=== PATIENT | male | born 1985 | race Caucasian/White ===

== ENCOUNTER 2023-04-17 10:52 | Inpatient (IN) ==
[2023-04-17] MEDS ORDERED: SODIUM CHLORIDE 0.9% 1,000 ML IV ONE ×2 (11:30→13:57)
[2023-04-17] MEDS ORDERED: ONDANSETRON INJ 2 MG/ML 2 ML VIAL IV STA (11:30)
[2023-04-17] MEDS ORDERED: KETOROLAC TROMETHAMINE 15 MG/ML VIAL IV STA (11:30)
[2023-04-17 11:34] LABS: Basophils # (auto) 0.09 K/uL (0.00-0.20); Basophils % (auto) 0.5 %; Eosinophils # (auto) 0.19 K/uL (0.00-0.50); Eosinophils % (auto) 1.1 %; Hemoglobin 14.1 g/dl (14.0-18.0); Immature Granulocytes # (auto) 0.08 K/uL (0.01-0.20); Immature Granulocytes % (auto) 0.5 %; Lymphocytes # (auto) 1.51 K/uL (1.20-3.40); Lymphocytes % (auto) 8.7 %; Mean Corpuscular Hemoglobin 30.8 pg (25.0-34.0); Mean Corpuscular Hgb Conc 33.6 g/dL (32.0-36.0); Mean Corpuscular Volume 91.7 fL (80.0-100.0); Mean Platelet Volume 11.2 fL (9.4-12.4); Monocytes % (auto) 10.9 %; Neutrophils # (auto) 13.61 K/uL (1.40-6.50); Neutrophils % (auto) 78.3 %; Platelet Count 186 K/uL (130-400); RDW Coefficient of Variation 12.5 % (11.5-14.5); Red Blood Count 4.58 M/uL (4.70-6.10); White Blood Count 17.38 K/ul (4.8-10.8)
[2023-04-17 11:49] LABS: Appearance Urine Slightly Cloudy (Clear); Bilirubin Urine 1+ (Negative); Blood Urine 3+ (Negative); Color Urine Amber; Glucose Urine UA Negative (Negative); Ketones Urine Trace (Negative); Leukocyte Esterase Urine Negative (Negative); Nitrite Urine Negative (Negative); Protein Urine 3+ (Negative); Specific Gravity Urine 1.015 (1.000-1.030); Urobilinogen Urine Negative (Negative)
--- NOTE | 2023-04-17 11:50 | XRay Report ---
XR chest 1V portable HISTORY: 37 years-old Male cough acute cough COMPARISON: None TECHNIQUE: AP view of the chest FINDINGS: Cardiomediastinal and hilar silhouettes are within normal limits. No pneumothorax, pleural effusion o r airspace consolidation. Bones appear grossly intact. IMPRESSION: No acute process. ACT 112: Negative or not required by law. The above report was generated using voice recognition software. It may contain grammatical, syntax o r spelling errors. Electronically signed by: Philip Joseph M.D. 04/17/2023 11:49 AM
[2023-04-17 11:58] LABS: Albumin Globulin Ratio 1.3 (0.9-2); BUN Creatinine Ratio 10.4 (10-20); Bilirubin,Total 0.5 mg/dl (0.2-1.0); Calcium 9.3 mg/dl (8.6-10.3); Creatinine Clr Calc Pharmacy 55.4 ml/min; Est GFR (African American) 51.1 ml/min; Est GFR (Non-African American) 44.1 ml/min; Globulin 3.1 gm/dl (2.5-4.0); Magnesium 1.9 mg/dl (1.7-2.4); Potassium 3.8 mmol/L (3.5-5.1); Total Protein 7.1 gm/dl (6.0-8.3)
[2023-04-17 12:02] LABS: Partial Thromboplastin Ratio 1.1; Partial Thromboplastin Time 32 Seconds (21-31); Prothrombin Time 11.2 Seconds (9.0-12.0)
--- NOTE | 2023-04-17 12:04 | Emergency Department Note ---
History of Present Illness General Chief complaint: Urinary Symptoms Stated complaint: BLOOD IN URINE Time Seen by Provider: 04/17/23 11:14 History of Present Illness Provider complaint: Hematuria Onset (ago): day(s) 2 Maximum Pain Intensity: 1 Associated symptoms: + cough and + fever/chills; no headaches, no nausea/vomiting or no rash 37-year-old male presents emergency department for hematuria. Patient reports hematuria for the last 2 days. He reports no dysuria. Reports no abdominal pain. No flank pain. He does report fever, Tmax 104. Patient reports he has also had chills, cough, congestion and diarrhea. No melena or hematochezia. Patient reports that his and children have also been sick with fevers. No recent trauma. No statin usage or nutritional supplements. No high intensity workouts lately. Home Medications Medication Instructions Recorded Confirmed Type acetaminophen 500 mg tablet 500 mg PO Q6H PRN PAIN/FEVER 04/17/23 04/17/23 History Allergies Allergy/AdvReac Type Severity Reaction Status Date / Time No Known Allergies Allergy Unverified 04/17/23 13:25 Past Med/Surg History Medical History No pertinent past medical history No pertinent family history Surgical History No pertinent past surgical history Social History Smoking Status: Never smoker Feels Safe at Home: Yes Physical Exam Vital Signs Vital Signs - 24 hr 04/17/23 10:59 04/17/23 12:53 Temperature 36.7 C Temperature Source Skin Pulse Rate 88 Respiratory Rate 18 16 Respiratory Effort / Characteristics Non-Labored Spontaneous Respiratory Depth Normal Respiratory Pattern Regular Blood Pressure 116/73 Blood Pressure [Left Arm] 129/78 Blood Pressure Mean 87 Blood Pressure Mean [Left Arm] 95 Blood Pressure Position [Left Arm] Lying Pulse Oximetry 100 99 Oxygen Delivery Method Room Air Room Air Sepsis Recent Fever Within 48 Hours No Sepsis New/Unexplained Change in Mental Status No Sepsis Action Taken by Nursing No Action Required Physical Exam GENERAL: He is oriented to person, place, and time. He appears well-developed and well-nourished. He does not appear distressed. HENT: Exam performed. - Head: Normocephalic and atraumatic. - Right Ear: External ear normal. No mastoid erythema - Left Ear: External ear normal. No mastoid erythema - Mouth/Throat: The oropharynx is clear and moist. No trismus in the jaw. No dental abscesses or uvula swelling. No oropharyngeal exudate or tonsillar abscesses. EYES: Conjunctivae and EOM are normal. Pupils are equal, round, and reactive to light. Right eye exhibits no discharge. Left eye exhibits no discharge. No scleral icterus. NECK: Normal range of motion. Neck supple. No JVD present. No spinous process tenderness present. No rigidity. No tracheal deviation and normal range of motion present. No Brudzinski's sign and no Kernig's sign noted. CV: Normal rate, regular rhythm, normal heart sounds and intact distal pulses. There is no peripheral edema. Palpable radial pulses bue. PULM/CHEST: Effort normal and breath sounds normal. No respiratory distress. No stridor. He has no wheezes. He has no rales. - Chest Wall: He exhibits no tenderness. ABD: The abdomen is soft. Bowel sounds are normal. He has no distension. No mass is present. There is no tenderness. There is no rebound, no guarding, no Gallegos's sign and no tenderness at McBurney's point. Rovsig negative. No CVA tenderness. MUSC/SKEL: Normal range of motion. There is no peripheral edema, tenderness or deformity. LYMPH: No cervical adenopathy. NEURO: He is alert and oriented to person, place, and time. He has normal strength. No cranial nerve deficit or sensory deficit. Coordination and gait normal. GCS eye subscore is 4. GCS verbal subscore is 5. GCS motor subscore is 6. Cerebellar tests wnl. SKIN: Skin is warm and dry. He is not diaphoretic. PSYCH: He has a normal mood and affect. Behavior is normal. Judgment and thought content normal. Course Course 1114: The patient was evaluated in room A12B. A complete history and physical exam was performed Cardiac monitoring: An order was placed for continuous cardiac monitoring. The monitor shows a rate of 90 with sinus rhythm interpreted by me 1345: Vital signs stable. Labs show leukocytosis 17. Lactic acid within normal limits. Creatinine is elevated at 1.92. Procalcitonin elevated 0.53. Urinalysis appears infected. Patient is Enterra rhinovirus positive. Imaging shows left-sided nephrolithiasis with 1.5 cm calculus within the left renal pelvis causing mild hydronephrosis and mild left-sided urothelial thickening. Patient will be treated with Rocephin for the UTI/pyelonephritis. Discussed case with urology Nate KONG for Dr. Melvin and she states they will come down and evaluate the patient. Patient will be admitted by the [facility] team Dr. Nickerson's team notified. Administered Medications Discontinued Medications Diatrizoate Meglumine (Diatrizoate Meglumine 30% 100ml Vial) 10 ml INSTIL ONCE ONE Stop: 04/17/23 17:40 Last Admin: 04/17/23 17:15 Dose: 10 ml Documented By: [id number] Sodium Chloride (Nss) 1,000 mls @ 999 mls/hr IV .Q1H1M ONE Stop: 04/17/23 12:30 Last Infusion: 04/17/23 14:07 Dose: Infused Documented By: Admin: 04/17/23 13:29 Dose: 999 mls/hr Documented By: CPB Ceftriaxone Sodium (Rocephin) 2,000 mg in 50 mls @ 100 mls/hr IV NOW STA Stop: 04/17/23 13:34 Last Infusion: 04/17/23 14:06 Dose: Infused Documented By: Admin: 04/17/23 13:25 Dose: 100 mls/hr Documented By: CPB Sodium Chloride (Nss) 1,000 mls @ 999 mls/hr IV .Q1H1M ONE Stop: 04/17/23 14:57 Last Infusion: 04/17/23 15:13 Dose: Infused Documented By: Admin: 04/17/23 14:06 Dose: 999 mls/hr Documented By: CPB Ketorolac Tromethamine (Ketorolac Tromethamine 15 Mg/Ml Vial) 15 mg IV NOW STA Stop: 04/17/23 11:31 Last Admin: 04/17/23 11:44 Dose: 15 mg Documented By: CPB Ondansetron HCl (Ondansetron Inj 2 Mg/Ml 2 Ml Vial) 4 mg IV NOW STA Stop: 04/17/23 11:31 Last Admin: 04/17/23 11:43 Dose: 4 mg Documented By: CPB Medical Decision Making Laboratory Data Attestation: I reviewed the patient's lab results. 04/17/23 11:10 04/17/23 11:10 Lab Results 04/17/23 04/17/23 04/17/23 Range/Units 11:10 11:10 11:10 WBC 17.38 H (4.8-10.8) K/ul RBC 4.58 L (4.70-6.10) M/uL Hgb 14.1 (14.0-18.0) g/dl Hct 42.0 (42.0-52.0) % MCV 91.7 (80.0-100.0) fL MCH 30.8 (25.0-34.0) pg MCHC 33.6 (32.0-36.0) g/dL RDW Std Deviation 42.0 (36.4-46.3) fL RDW Coeff of Ada 12.5 (11.5-14.5) % Plt Count 186 (130-400) K/uL MPV 11.2 (9.4-12.4) fL Immature Gran % (Auto) 0.5 % Neut % (Auto) 78.3 % Lymph % (Auto) 8.7 % [place] % (Auto) 10.9 % Eos % (Auto) 1.1 % Baso % (Auto) 0.5 % Neut # (Auto) 13.61 H (1.40-6.50) K/uL Lymph # (Auto) 1.51 (1.20-3.40) K/uL [place] # (Auto) 1.90 H (0.11-0.59) K/uL Eos # (Auto) 0.19 (0.00-0.50) K/uL Baso # (Auto) 0.09 (0.00-0.20) K/uL Immature Gran # (Auto) 0.08 (0.01-0.20) K/uL PT 11.2 (9.0-12.0) Seconds INR 1.0 (0.9-1.1) APTT 32 H Cancelled (21-31) Seconds PTT Ratio 1.1 Cancelled Sodium 134 L (136-145) mmol/L Potassium 3.8 (3.5-5.1) mmol/L Chloride 100 (98-107) mmol/L Carbon Dioxide 26 (21-32) mmol/L Anion Gap 8 (3-11) BUN 20 (6-23) mg/dl Creatinine 1.92 H (0.6-1.4) mg/dl Est Cr Clr Drug Dosing 55.4 ml/min Est GFR ( Amer) 51.1 ml/min Est GFR (Non-Af Amer) 44.1 ml/min BUN/Creatinine Ratio 10.4 (10-20) Glucose 110 H (70-99(Fasting)) mg/dl Lactate (0.4-2.0) mmol/L Calcium 9.3 (8.6-10.3) mg/dl Magnesium 1.9 (1.7-2.4) mg/dl Total Bilirubin 0.5 (0.2-1.0) mg/dl AST 19 (13-39) U/L ALT 10 (7-52) U/L Alkaline Phosphatase 75 (34-104) U/L Total Creatine Kinase 63 (30-223) U/L Total Protein 7.1 (6.0-8.3) gm/dl Albumin 4.0 (3.4-5.0) gm/dl Globulin 3.1 (2.5-4.0) gm/dl Albumin/Globulin Ratio 1.3 (0.9-2) Lipase 17 (11-82) U/L Procalcitonin 0.53 H (0-0.5) ng/ml Urine Color Neha Urine Appearance Slightly Cloudy (Clear) Urine pH 6.0 (4.5-7.5) Ur Specific [place] 1.015 (1.000-1.030) Urine Protein 3+ H (Negative) Urine Glucose (UA) Negative (Negative) Urine Ketones Trace H (Negative) Urine Blood 3+ H (Negative) Urine Nitrite Negative (Negative) Urine Bilirubin 1+ H (Negative) Urine Urobilinogen Negative (Negative) Ur Leukocyte Esterase Negative (Negative) Urine RBC >30 H (0-4) /hpf Urine WBC 10-30 H (0-5) /hpf Ur Epithelial Cells 0-5 (0-5) /lpf Urine Bacteria 2+ H (Negative) Hyaline Casts 0-5 (0-5) /lpf Adenovirus (PCR) Not Detected (NotDetected) B. pertussis DNA (PCR) Not Detected (NotDetected) B.parapertussis DNA PCR Not Detected (NotDetected) C. pneumoniae DNA (PCR) Not Detected (NotDetected) Coronavirus OC43 (PCR) Not Detected (NotDetected) Coronavirus HKU1 (PCR) Not Detected (NotDetected) Coronavirus 229E (PCR) Not Detected (NotDetected) SARS-CoV-2 (PCR) Not Detected (NotDetected) Coronavirus NL63 (PCR) Not Detected (NotDetected) Human Metapneumovir PCR Not Detected (NotDetected) Influenza Type A (PCR) Not Detected (NotDetected) Influenza Type B (PCR) Not Detected (NotDetected) M. pneumoniae (PCR) Not Detected (NotDetected) Parainfluenza 1 (PCR) Not Detected (NotDetected) Parainfluenza 2 (PCR) Not Detected (NotDetected) Parainfluenza 3 (PCR) Not Detected (NotDetected) Parainfluenza 4 (PCR) Not Detected (NotDetected) RSV (PCR) Not Detected (NotDetected) Entero/Rhino (PCR) DETECTED A* (NotDetected) 04/17/23 Range/Units 12:38 WBC (4.8-10.8) K/ul RBC (4.70-6.10) M/uL Hgb (14.0-18.0) g/dl Hct (42.0-52.0) % MCV (80.0-100.0) fL MCH (25.0-34.0) pg MCHC (32.0-36.0) g/dL RDW Std Deviation (36.4-46.3) fL RDW Coeff of Ada (11.5-14.5) % Plt Count (130-400) K/uL MPV (9.4-12.4) fL Immature Gran % (Auto) % Neut % (Auto) % Lymph % (Auto) % [place] % (Auto) % Eos % (Auto) % Baso % (Auto) % Neut # (Auto) (1.40-6.50) K/uL Lymph # (Auto) (1.20-3.40) K/uL [place] # (Auto) (0.11-0.59) K/uL Eos # (Auto) (0.00-0.50) K/uL Baso # (Auto) (0.00-0.20) K/uL Immature Gran # (Auto) (0.01-0.20) K/uL PT (9.0-12.0) Seconds INR (0.9-1.1) APTT (21-31) Seconds PTT Ratio Sodium (136-145) mmol/L Potassium (3.5-5.1) mmol/L Chloride (98-107) mmol/L Carbon Dioxide (21-32) mmol/L Anion Gap (3-11) BUN (6-23) mg/dl Creatinine (0.6-1.4) mg/dl Est Cr Clr Drug Dosing ml/min Est GFR ( Amer) ml/min Est GFR (Non-Af Amer) ml/min BUN/Creatinine Ratio (10-20) Glucose (70-99(Fasting)) mg/dl Lactate 0.9 (0.4-2.0) mmol/L Calcium (8.6-10.3) mg/dl Magnesium (1.7-2.4) mg/dl Total Bilirubin (0.2-1.0) mg/dl AST (13-39) U/L ALT (7-52) U/L Alkaline Phosphatase (34-104) U/L Total Creatine Kinase (30-223) U/L Total Protein (6.0-8.3) gm/dl Albumin (3.4-5.0) gm/dl Globulin (2.5-4.0) gm/dl Albumin/Globulin Ratio (0.9-2) Lipase (11-82) U/L Procalcitonin (0-0.5) ng/ml Urine Color Urine Appearance (Clear) Urine pH (4.5-7.5) Ur Specific [place] (1.000-1.030) Urine Protein (Negative) Urine Glucose (UA) (Negative) Urine Ketones (Negative) Urine Blood (Negative) Urine Nitrite (Negative) Urine Bilirubin (Negative) Urine Urobilinogen (Negative) Ur Leukocyte Esterase (Negative) Urine RBC (0-4) /hpf Urine WBC (0-5) /hpf Ur Epithelial Cells (0-5) /lpf Urine Bacteria (Negative) Hyaline Casts (0-5) /lpf Adenovirus (PCR) (NotDetected) B. pertussis DNA (PCR) (NotDetected) B.parapertussis DNA PCR (NotDetected) C. pneumoniae DNA (PCR) (NotDetected) Coronavirus OC43 (PCR) (NotDetected) Coronavirus HKU1 (PCR) (NotDetected) Coronavirus 229E (PCR) (NotDetected) SARS-CoV-2 (PCR) (NotDetected) Coronavirus NL63 (PCR) (NotDetected) Human Metapneumovir PCR (NotDetected) Influenza Type A (PCR) (NotDetected) Influenza Type B (PCR) (NotDetected) M. pneumoniae (PCR) (NotDetected) Parainfluenza 1 (PCR) (NotDetected) Parainfluenza 2 (PCR) (NotDetected) Parainfluenza 3 (PCR) (NotDetected) Parainfluenza 4 (PCR) (NotDetected) RSV (PCR) (NotDetected) Entero/Rhino (PCR) (NotDetected) Imaging Data Attestation: I personally reviewed and interpreted this imaging study as follows: My Impression: Chest x-ray negative. Airway clear. No pneumothorax. No consolidation. No cardiomegaly or cephalization.. No free air under the diaphragm. No fractures of the skeletal structures. Radiologist's Impression: Abdomen Fluoroscopy 04/17/23 00:00 FL KUB CLINICAL HISTORY: CYSTO, STENTleft-sided cystourethrogram COMPARISON STUDY: CT 04/17/2023 FLUOROSCOPY TIME: 5.4 seconds FLUOROSCOPY IMAGES: 3 EXPOSURE DOSE: Not reported mGy FINDINGS: Minimal left-sided hydronephrosis. Subsequent images demonstrate placement of a left ureteral stent which appears to be in satisfactory positioning proximally. The distal portion of the stent was not imaged. IMPRESSION: Fluoroscopic assistance as above. ACT 112: Negative or not required by law. Electronically signed by: Philip Joseph M.D. 04/17/2023 5:39 PM Abdomen/Pelvis CT 04/17/23 11:[address] WITHOUT CONTRAST CT DOSE: 920.38 mGy.cm HISTORY: Acute hematuria hematuria TECHNIQUE: Multiaxial CT images of the abdomen and pelvis were performed without contrast. A dose lowering technique was utilized adhering to the principles of ALARA. COMPARISON STUDY: None. FINDINGS: The lung bases are clear. Pectus excavatum. Trace pleural effusions. The unenhanced liver, spleen, gallbladder, pancreas, and adrenal glands are within normal limits. Unremarkable right kidney. Numerous left-sided renal calculi within the mid and inferior poles include a 9 mm calculus of the inferior pole 1.5 cm calculus in the renal pelvis. Mild left-sided hydronephrosis with urothelial thickening. No ureteral calculi identified. Urinary bladder wall thickening with partial distention. No abdominal aortic aneurysm or lymphadenopathy. No bowel wall thickening or obstruction. Normal appendix. No acute fracture. IMPRESSION: 1. Left nephrolithiasis with a 1.5 cm calculus within the left renal pelvis resulting in mild hydronephrosis. 2. Mild left-sided urothelial thickening may be reactive or represent an associated infectious etiology. Correlate with urinalysis. 3. Normal appendix. ACT 112: Negative or not required by law. The above report was generated using voice recognition software. It may contain grammatical, syntax or spelling errors. Electronically signed by: Philip Joseph M.D. 04/17/2023 12:27 PM Chest X-Ray 04/17/23 11:20 XR chest 1V portable HISTORY: 37 years-old Male cough acute cough COMPARISON: None TECHNIQUE: AP view of the chest FINDINGS: Cardiomediastinal and hilar silhouettes are within normal limits. No pneumothorax, pleural effusion or airspace consolidation. Bones appear grossly intact. IMPRESSION: No acute process. ACT 112: Negative or not required by law. The above report was generated using voice recognition software. It may contain grammatical, syntax or spelling errors. Electronically signed by: Philip Joseph M.D. 04/17/2023 11:49 AM [facility] Narrative 1114: The patient was evaluated in room A12B. A complete history and physical exam was performed Cardiac monitoring: An order was placed for continuous cardiac monitoring. The monitor shows a rate of 90 with sinus rhythm interpreted by nd 1345: Vital signs stable. Labs show leukocytosis 17. Lactic acid within normal limits. Creatinine is elevated at 1.92. Procalcitonin elevated 0.53. Urinalysis appears infected. Patient is Enterra rhinovirus positive. Imaging shows left-sided nephrolithiasis with 1.5 cm calculus within the left renal pelvis causing mild hydronephrosis and mild left-sided urothelial thickening. Patient will be treated with Rocephin for the UTI/pyelonephritis. Discussed case with urology Nate KONG for Dr. Melvin and she states they will come down and evaluate the patient. Patient will be admitted by the [facility] team Dr. Nickerson's team notified. Impression & Plan Acute pyelonephritis, Rhinovirus infection, MARYCARMEN (acute kidney injury), Enterovirus infection Discharge Plan Visit Data Chief Complaint: Urinary Symptoms Stated Complaint: BLOOD IN URINE ED Provider: Alexis Blas Discharge Problem: Acute pyelonephritis, Rhinovirus infection, MARYCARMEN (acute kidney injury), Enterovirus infection Patient Disposition: Admitted As Inpatient Discharge Instructions Interventions: ED Discharge Assessment Last Done: 04/17/23 16:00
[2023-04-17 12:10] LABS: Epithelial Cell Urine 0-5 /lpf (0-5); RBC Urine >30 /hpf (0-4)
[2023-04-17 12:17] LABS: Bacteria Urine 2+ (Negative)
[2023-04-17 12:18] LABS: Hyaline Casts Urine 0-5 /lpf (0-5)
[2023-04-17 12:20] LABS: Adenovirus PCR Not Detected (NotDetected); Bordetella parapertussis PCR Not Detected (NotDetected); Bordetella pertussis PCR Not Detected (NotDetected); Chlamydia pneumoniae PCR Not Detected (NotDetected); Coronavirus 229E PCR Not Detected (NotDetected); Coronavirus CoV-2 (COVID19)PCR Not Detected (NotDetected); Coronavirus HKU1 PCR Not Detected (NotDetected); Coronavirus NL63 PCR Not Detected (NotDetected); Coronavirus OC43PCR Not Detected (NotDetected); Human Metapneumovirus PCR Not Detected (NotDetected); Influenza A PCR Not Detected (NotDetected); Influenza B PCR Not Detected (NotDetected); Mycoplasma pneumoniae PCR Not Detected (NotDetected); Parainfluenza Virus 1 PCR Not Detected (NotDetected); Parainfluenza Virus 2 PCR Not Detected (NotDetected); Parainfluenza Virus 3 PCR Not Detected (NotDetected); Parainfluenza Virus 4 PCR Not Detected (NotDetected); Respiratory Syncytial VirusPCR Not Detected (NotDetected)
--- NOTE | 2023-04-17 12:28 | CT Scan Report ---
ABDOMEN AND PELVIS CT WITHOUT CONTRAST CT DOSE: 920.38 mGy.cm HISTORY: Acute hematuria hematuria TECHNIQUE: Multiaxial CT images of the abdomen and pelvis were performed without contrast. A dose lo wering technique was utilized adhering to the principles of ALARA. COMPARISON STUDY: None. FINDINGS: The lung bases are clear. Pectus excavatum. Trace pleural effusions. The unenhanced liver, spleen, gallbladder, pancreas, and adrenal glands are within normal limits. Unremarkable right kidney. Numerous left-sided renal calculi within the mid and inferior poles includ e a 9 mm calculus of the inferior pole 1.5 cm calculus in the renal pelvis. Mild left-sided hydroneph rosis with urothelial thickening. No ureteral calculi identified. Urinary bladder wall thickening wit h partial distention. No abdominal aortic aneurysm or lymphadenopathy. No bowel wall thickening or ob struction. Normal appendix. No acute fracture. IMPRESSION: 1. Left nephrolithiasis with a 1.5 cm calculus within the left renal pelvis resulting in mild hydrone phrosis. 2. Mild left-sided urothelial thickening may be reactive or represent an associated infectious etiolo gy. Correlate with urinalysis. 3. Normal appendix. ACT 112: Negative or not required by law. The above report was generated using voice recognition software. It may contain grammatical, syntax o r spelling errors. Electronically signed by: Philip Joseph M.D. 04/17/2023 12:27 PM
[2023-04-17] MEDS ORDERED: cefTRIAXone SODIUM 2,000 MG/50 ML BAG IV STA (13:05)
[2023-04-17 13:09] LABS: Rhinovirus/Enterovirus PCR DETECTED (NotDetected)
--- NOTE | 2023-04-17 13:28 | History & Physical Report ---
Date of Service April 17, 2023 Assessment & Plan (1) Ureterolithiasis: Plan: 1.5cm stone. Consult urology to consider stent placement - possibly later today given suspected MARYCARMEN and associated infection NPO, IV fluids (2) UTI (urinary tract infection): Plan: Ceftriaxone pending blood and urine cultures (3) Rhinovirus infection: Plan: Symptomatic treatment only with guaifenesin/dextromethorphan as needed Droplet isolation precautions Plan VTE prophylaxis - low risk Diet - NPO pending urological intervention Disposition - admit to med/surg Admission and Anticipated Discharge Date Admission Date: April 17, 2023 History of Present Illness Chief Complaint: Hematuria Primary Care Provider: NO PCP Romna Mujica is a 37-year-old male who presents to the emergency room on advice of urgent care with hematuria and fevers. Symptoms started on Saturday night (2 days ago) and have been persistent prompting his urgent care visit today. Associated cough with yellow/green phlegm and generalized myalgias. No sinus pain or postnasal drip. No specific urinary symptoms with no dysuria, change in color/smell, back or flank pain. He has no chronic medical conditions and takes no chronic medications. He has been taking acetaminophen for his fever with 1 dose of ibuprofen on Saturday. Allergies Allergy/AdvReac Type Severity Reaction Status Date / Time No Known Allergies Allergy Unverified 04/17/23 13:25 Home Medications Medication Instructions Recorded Confirmed Type acetaminophen 500 mg tablet 500 mg PO Q6H PRN PAIN/FEVER 04/17/23 04/17/23 History Past Med/Surg History Medical History No pertinent past medical history No pertinent family history Surgical History No pertinent past surgical history Social History Smoking Status: Never smoker Feels Safe at Home: Yes Review of Systems Review of Systems: All systems reviewed & are unremarkable except as noted in HPI & below Physical Exam Constitutional: WD/WN, vitals as above ENMT: Mouth: oral mucous membranes not dry Respiratory: normal respiratory effort, lungs clear to auscultation Cardiovascular: RRR, no murmur, no edema Gastrointestinal (Abdomen): normal bowel sounds, soft, nontender, no hepatosplenomegaly Musculoskeletal: no cyanosis or clubbing, extremities motor strength 5/5 Skin: no rashes, warm and dry Neurologic: moves all extremities and awake; not confused Psychiatric: A+Ox3, euthymic affect Results & Data Results & Data Vital Signs (Past 12 Hours) Vital Signs Temp Pulse Resp BP BP Pulse Ox O2 Del Method 04/17/23 12:53 16 129/78 99 Room Air 04/17/23 10:59 36.7 C 88 18 116/73 100 Room Air Laboratory Results Abnormal lab results 04/17/23 Range/Units 11:10 WBC 17.38 H (4.8-10.8) K/ul RBC 4.58 L (4.70-6.10) M/uL Neut # (Auto) 13.61 H (1.40-6.50) K/uL [place] # (Auto) 1.90 H (0.11-0.59) K/uL APTT 32 H (21-31) Seconds Sodium 134 L (136-145) mmol/L Creatinine 1.92 H (0.6-1.4) mg/dl Glucose 110 H (70-99(Fasting)) mg/dl Procalcitonin 0.53 H (0-0.5) ng/ml Urine Protein 3+ H (Negative) Urine Ketones Trace H (Negative) Urine Blood 3+ H (Negative) Urine Bilirubin 1+ H (Negative) Urine RBC >30 H (0-4) /hpf Urine WBC 10-30 H (0-5) /hpf Urine Bacteria 2+ H (Negative) Entero/Rhino (PCR) DETECTED A* (NotDetected) Diagnostic Findings XR chest 1V portable HISTORY: 37 years-old Male cough acute cough COMPARISON: None TECHNIQUE: AP view of the chest FINDINGS: Cardiomediastinal and hilar silhouettes are within normal limits. No pneumothorax, pleural effusion or airspace consolidation. Bones appear grossly intact. IMPRESSION: No acute process. ABDOMEN AND PELVIS CT WITHOUT CONTRAST CT DOSE: 920.38 mGy.cm HISTORY: Acute hematuria hematuria TECHNIQUE: Multiaxial CT images of the abdomen and pelvis were performed without contrast. A dose lowering technique was utilized adhering to the principles of ALARA. COMPARISON STUDY: None. FINDINGS: The lung bases are clear. Pectus excavatum. Trace pleural effusions. The unenhanced liver, spleen, gallbladder, pancreas, and adrenal glands are within normal limits. Unremarkable right kidney. Numerous left-sided renal calculi within the mid and inferior poles include a 9 mm calculus of the inferior pole 1.5 cm calculus in the renal pelvis. Mild left-sided hydronephrosis with urothelial thickening. No ureteral calculi identified. Urinary bladder wall thickening with partial distention. No abdominal aortic aneurysm or lymphadenopathy. No bowel wall thickening or obstruction. Normal appendix. No acute fracture. IMPRESSION: 1. Left nephrolithiasis with a 1.5 cm calculus within the left renal pelvis resulting in mild hydronephrosis. 2. Mild left-sided urothelial thickening may be reactive or represent an associated infectious etiology. Correlate with urinalysis. 3. Normal appendix. Medications Administered ER medications given: Ceftriaxone 2000 mg IV Sodium chloride 1000 mL bolus Toradol 15 mg IV Ondansetron 4 mg IV Code Status & VTE Plan Code Status Full VTE Prophylaxis Plan VTE Prophylaxis will be ordered: No PG Care Time/CCT Total # of Minutes Spent Total Time Spent with Patient: Total time spent is greater than 50% in coordination of care (as documented) at patient's floor/unit and/or counseling patient: Coding Level of Care Code 34205 INT INP/OBS CARE 2MIN Diagnoses Ureterolithiasis N20.1 UTI (urinary tract infection) N39.0 Rhinovirus infection B34.8
--- NOTE | 2023-04-17 14:32 | Urology Consultation ---
Date of Consultation April 17, 2023 Assessment & Plan (1) Ureterolithiasis: Plan 37-year-old male with fevers, hematuria and a large left renal pelvis stone with potentially a small amount of hydronephrosis. Discussed options and will plan for going to the OR for cystoscopy, left retrograde pyelogram left ureteral stent placement. Consent obtained after discussing risks and benefits. Patient already received antibiotics. Patient marked History of Present Illness History of Present Illness 37-year-old male present to the hospital with hematuria and fevers. Febrile with stable vitals upon arrival but reported a fever of 104 at home. Labs showed a leukocytosis of 17.3, creatinine of 1.92 with an unknown baseline, and a urinalysis that had greater than 30 RBCs, 10-[address] scan showed a large 1.5 cm left renal pelvis stone with potential mild hydronephrosis. Allergies Allergy/AdvReac Type Severity Reaction Status Date / Time No Known Allergies Allergy Unverified 04/17/23 13:25 Home Medications Medication Instructions Recorded Confirmed Type acetaminophen 500 mg tablet 500 mg PO Q6H PRN PAIN/FEVER 04/17/23 04/17/23 History Patient History Medical History No pertinent past medical history No pertinent family history Surgical History No pertinent past surgical history Social History Smoking Status: Never smoker Feels Safe at Home: Yes Review of Systems Review of Systems: 14 point review of systems negative outs megan of what is listed above in HPI Physical Exam Physical Exam: General: Alert and oriented, no acute distress HEENT: Normocephalic, mucous membranes moist Pulmonary: Nonlabored respirations Abdomen: Nondistended Extremities: Moves all 4 spontaneously Neuro: No gross deficits Skin: Warm, dry, no rashes noted Results & Data Vital Signs (Past 12 Hours) Vital Signs Temp Pulse Pulse Resp BP BP Pulse Ox 04/17/23 14:00 36.9 C 76 18 124/82 98 04/17/23 12:53 16 129/78 99 04/17/23 10:59 36.7 C 88 18 116/73 100 O2 Del Method 04/17/23 14:00 Room Air 04/17/23 12:53 Room Air 04/17/23 10:59 Room Air PG Care Time/CCT Total # of Minutes Spent Total Time Spent with Patient: Total time spent is greater than 50% in coordination of care (as documented) at patient's floor/unit and/or counseling patient: Coding Level of Care Code 82475 IN/OBS CONSULT LVL 3,45M Diagnoses Ureterolithiasis N20.1
[2023-04-17] MEDS ORDERED: guaiFENesin/DEXTROM SYRUP 200MG/20MG 10ML UDC PO PRN (15:34)
[2023-04-17] MEDS ORDERED: ACETAMINOPHEN 1,000 MG/100 ML VIAL IV PRN (15:34)
[2023-04-17] MEDS ORDERED: PROPOFOL IV EMULSION 10 MG/ML 20 ML VIAL IV ONE ×2 (16:38→17:04)
[2023-04-17] MEDS ORDERED: LIDOCAINE 2% 2 ML VIAL/AMP(20MG/ML) INFIL ONE (16:38)
[2023-04-17] MEDS ORDERED: MIDAZOLAM HCL 1 MG/ML 2ML VIAL ONE ×2 (16:38→17:00)
[2023-04-17] MEDS ORDERED: fentaNYL citrate PF 100 MCG/2 ML VIAL ONE (16:39)
[2023-04-17] MEDS ORDERED: ATROPINE SULFATE 0.1 MG/ML 10ML SYR IV PRN (16:40)
[2023-04-17] MEDS ORDERED: ONDANSETRON INJ 2 MG/ML 2 ML VIAL IV PRN (16:40)
[2023-04-17] MEDS ORDERED: ePHEDrine sulfate 50 MG/ML AMP IV PRN (16:40)
[2023-04-17] MEDS ORDERED: fentaNYL citrate PF 100 MCG/2 ML VIAL IV PRN (16:40)
--- NOTE | 2023-04-17 16:40 | Anesthesiology Consultation ---
Date of Service April 17, 2023 Assessment & Plan ASA ASA1 Proposed Anesthesia Anesthesia Type: MAC Risk / Benefits Reviewed With: PT / POA / Parent / Guardian, Accepts Plan and Informed Consent Obtained History Surgery Operation Date: 04/17/23 13:10 Proposed Procedures p Cystoscopy, Left Retrograde Pyelogram, Left Ureteral Stent Placement(Left) - Desean Melvin MD Height/Weight Height: 5 ft 10 in Weight: 84.7 kg Allergies Allergy/AdvReac Type Severity Reaction Status Date / Time No Known Allergies Allergy Unverified 04/17/23 13:25 Medications Home Medications Medication Instructions Recorded Confirmed Last Taken acetaminophen 500 mg tablet 500 mg PO Q6H PRN PAIN/FEVER 04/17/23 04/17/23 04/17/23 NPO Date Last Intake of Fluids: 04/17/23 Time Last Intake of Fluids: 11:00 Date Last Intake of Solids: 04/17/23 Time Last Intake of Solids: 08:00 Past Medical History Medical History No pertinent past medical history No pertinent family history Exercise / Class Metabolic Activity II 4-5 Yardwork/Stairs/Walk up hill Past Surgical History Surgical History No pertinent past surgical history Past Anesthesia History No Hx of Anesthesia Complications and No Family Hx of Anesthesia Complications History of PONV No Hx of PONV and No Hx of Motion Sickness Social History Smoking Status: Never smoker Review of Systems denies fever/cough/ colds/ chest pain/ SOB/ JUSTINA denies JUSTINA Physical Exam Vital Signs Last Vital Signs Temp 36.9 C 04/17/23 16:17 Pulse 92 H 04/17/23 16:17 Resp 18 04/17/23 16:17 BP 121/81 04/17/23 16:17 Pulse Ox 100 04/17/23 16:17 O2 Del Method Room Air 04/17/23 16:17 ENMT Mouth: no TMJ abnormality and no dentition abnormality Thyromental Distance: > or= 3.5 Finger Breadths Mallampati Class: II Neck neck extension not limited Respiratory normal respiratory effort; no respiratory distress Auscultation: lungs clear to auscultation bilaterally Cardiovascular Rate/Rhythm: regular rate and regular rhythm Neurologic moves all extremities Psychiatric Orientation: alert and oriented x 3 Testing Laboratory Results 04/17/23 11:10 04/17/23 11:10 PT 11.2 Seconds (9.0-12.0) 04/17/23 11:10 INR 1.0 (0.9-1.1) 04/17/23 11:10 APTT 32 Seconds (21-31) H 04/17/23 11:10 APTT Cancelled 04/17/23 11:10 Urine Color Neha 04/17/23 11:10 Urine Appearance Slightly Cloudy (Clear) 04/17/23 11:10 Urine pH 6.0 (4.5-7.5) 04/17/23 11:10 Ur Specific [place] 1.015 (1.000-1.030) 04/17/23 11:10 Urine Protein 3+ (Negative) H 04/17/23 11:10 Urine Glucose (UA) Negative (Negative) 04/17/23 11:10 Urine Ketones Trace (Negative) H 04/17/23 11:10 Urine Nitrite Negative (Negative) 04/17/23 11:10 Ur Leukocyte Esterase Negative (Negative) 04/17/23 11:10 Urine RBC >30 /hpf (0-4) H 04/17/23 11:10 Urine WBC 10-30 /hpf (0-5) H 04/17/23 11:10 Ur Epithelial Cells 0-5 /lpf (0-5) 04/17/23 11:10
[2023-04-17] MEDS ORDERED: DIATRIZOATE MEGLUMINE 30% 100ML VIAL INSTIL ONE (17:39)
--- NOTE | 2023-04-17 17:41 | Fluoroscopy Report ---
FL KUB CLINICAL HISTORY: CYSTO, STENTleft-sided cystourethrogram COMPARISON STUDY: CT 04/17/2023 FLUOROSCOPY TIME: 5.4 seconds FLUOROSCOPY IMAGES: 3 EXPOSURE DOSE: Not reported mGy FINDINGS: Minimal left-sided hydronephrosis. Subsequent images demonstrate placement of a left ureter al stent which appears to be in satisfactory positioning proximally. The distal portion of the stent was not imaged. IMPRESSION: Fluoroscopic assistance as above. ACT 112: Negative or not required by law. Electronically signed by: Philip Joseph M.D. 04/17/2023 5:39 PM
--- NOTE | 2023-04-17 18:08 | Operative Report ---
PG Post Operative Report Pre & Post Diagnosis Operation Date: 04/17/23 13:10 Pre-Op Diagnosis: Left Urethral Stone Post-Op Diagnosis: Left Urethral Stone I identified the patient and participated in the time-out.: Yes Procedure Operation Date: 04/17/23 13:10 Actual Procedures p Cystoscopy, Left Retrograde Pyelogram with radiographic interpretation, Left U reteral Stent Placement(Left) - Desean Melvin MD Surgeon Desean Melvin MD Non Clinical Advisor None Estimated Blood Loss 0 Findings See Below Stent in appropriate position Specimens None Drains 6x26 cm left ureteral stent Anesthesia Type MAC Complications none Indications 37-year-old male with a large left renal stone and subjective fevers at home. Description of Procedure After informed consent was obtained, the patient was transported operative suite. MAC anesthesia was induced. The patient was placed in dorsal lithotomy position prepped and draped in a sterile fashion. They received preoperative ceftriaxone for antibiotic prophylaxis. An appropriate surgical timeout was performed. A 22 [place] rigid scope was inserted per urethra into the bladder. Guzman cystoscopy revealed no stones or lesions. I turned my attention the left ureteral orifice and intubated this with a 5 [place]ic open-ended catheter. A left retrograde pyelogram was shot which showed mild hydronephrosis. A sensor wire was advanced into the kidney and confirmed fluoroscopically. A 6 [place]ic by 26 cm left ureteral stent was deployed with a good proximal coil in the renal pelvis and a good distal coil noted in the bladder. These were confirmed fluoroscopically and under direct visualization, respectively. The bladder was emptied and the scope was removed. This concluded the end of the case. All counts were correct at the end of the case. I was present, scrubbed, and actively participated for the entirety of the procedure. I attest to the content of the Intraoperative Record and any orders documented therein. Any exceptions are noted below.
[2023-04-17] MEDS: SODIUM CHLORIDE 0.9% 1,000 ML IV SCH (18:15)
--- NOTE | 2023-04-17 18:25 | Anesthesiology Progress Note ---
Date of Service April 17, 2023 Anesthesia Post Procedure Vital Signs Vital Signs: Temp Pulse Pulse Pulse Resp BP BP 04/17/23 18:09 37.3 C 90 16 112/71 04/17/23 18:08 37.3 C 90 16 112/71 04/17/23 17:45 91 H 14 93/72 L 04/17/23 17:35 99 H 14 103/72 04/17/23 17:27 36.7 C 93 H 16 109/68 04/17/23 16:17 36.9 C 92 H 18 121/81 04/17/23 15:23 130 H 18 136/78 04/17/23 15:20 36.9 C 92 H 16 116/79 04/17/23 14:00 36.9 C 76 18 124/82 04/17/23 12:53 16 129/78 04/17/23 10:59 36.7 C 88 18 116/73 Pulse Ox O2 Del Method 04/17/23 18:09 97 Room Air 04/17/23 18:08 97 Room Air 04/17/23 17:45 97 Room Air 04/17/23 17:35 100 Room Air 04/17/23 17:27 93 Room Air 04/17/23 16:17 100 Room Air 04/17/23 15:23 97 Room Air 04/17/23 15:20 96 Room Air 04/17/23 14:00 98 Room Air 04/17/23 12:53 99 Room Air 04/17/23 10:59 100 Room Air Transfer of Care Handoff Completed per policy Notes Mental Status: alert / awake / arousable and participated in evaluation Patient Amnestic to Procedure: Yes Nausea / Vomiting: adequately controlled Pain: adequately controlled Airway Patency, RR, SpO2: stable & adequate BP & HR: stable & adequate Hydration State: stable & adequate Anesthetic Complications: no major complications apparent and Pt Satisfied with anesthetic care
[2023-04-18] MEDS ORDERED: COUGH DROP (SUGAR FREE) LOZ 24 LOZ/1 BOX BUCCAL ONE (01:30)
[2023-04-18] MEDS ORDERED: COUGH DROP (SUGAR FREE) LOZ 24 LOZ/1 BOX BUCCAL PRN (01:38)
[2023-04-18] MEDS: SODIUM CHLORIDE 0.9% 1,000 ML IV SCH ×2 (07:02→13:27)
[2023-04-18 07:57] LABS: BUN Creatinine Ratio 9.9 (10-20); Creatinine Clr Calc Pharmacy 61.9 ml/min; Est GFR (African American) 58.4 ml/min; Est GFR (Non-African American) 50.4 ml/min; Potassium 3.9 mmol/L (3.5-5.1)
--- NOTE | 2023-04-18 08:32 | Hospitalist Progress Note ---
Date of Service April 18, 2023 Assessment & Plan (1) Ureterolithiasis: Plan: Presented with fever, hematuria, generalized myalgias with cough yellow/green sputum. +rhinovirus testing on admit Leukocytosis with WBC 17.3k on admission and MARYCARMEN w/ Cr to 1.92. Procal 0.53 CTAP w/ 1.5cm LEFT renal pelvis stone with mild hydronephrosis. Urology consulted s/p Cystoscopy, Left Retrograde Pyelogram with radiographic interpretation, Left Ureteral Stent Placement(Left) - Desean Melvin MD IVF continued, Cr to 1.72 Continue Ceftriaxone for suspected infection Monitor urine/blood cultures Monitor on repeat (2) UTI (urinary tract infection): Plan: Ceftriaxone as above, monitor urine/blood cultures (3) Rhinovirus infection: Plan: Symptomatic treatment only with guaifenesin/dextromethorphan as needed. CXR without acute process. On room air. Maintain droplet isolation precautions Admission and Anticipated Discharge Date Admission Date: April 17, 2023 Results & Data Results & Data Vital Signs (Past 12 Hours) Vital Signs Temp Pulse Resp BP Pulse Ox O2 Del Method 04/18/23 08:02 37.1 C 87 18 111/71 93 Room Air 04/18/23 04:45 Room Air 04/18/23 02:26 38.0 C H 103 H 16 125/77 97 Room Air 04/17/23 23:03 37.6 C 109 H 16 118/75 96 Room Air PG Care Time/CCT Total # of Minutes Spent Total Time Spent with Patient: Total time spent is greater than 50% in coordination of care (as documented) at patient's floor/unit and/or counseling patient: Coding Diagnoses Ureterolithiasis N20.1 UTI (urinary tract infection) N39.0 Rhinovirus infection B34.8
[2023-04-18 08:34] LABS: Basophils # (auto) 0.04 K/uL (0.00-0.20); Basophils % (auto) 0.4 %; Eosinophils # (auto) 0.45 K/uL (0.00-0.50); Eosinophils % (auto) 4.1 %; Hematocrit (blood only) 33.6 % (42.0-52.0); Hemoglobin 11.2 g/dl (14.0-18.0); Immature Granulocytes # (auto) 0.06 K/uL (0.01-0.20); Immature Granulocytes % (auto) 0.5 %; Lymphocytes # (auto) 1.46 K/uL (1.20-3.40); Lymphocytes % (auto) 13.3 %; Mean Corpuscular Hemoglobin 30.6 pg (25.0-34.0); Mean Corpuscular Hgb Conc 33.3 g/dL (32.0-36.0); Mean Corpuscular Volume 91.8 fL (80.0-100.0); Mean Platelet Volume 11.5 fL (9.4-12.4); Monocytes % (auto) 12.8 %; Neutrophils # (auto) 7.53 K/uL (1.40-6.50); Neutrophils % (auto) 68.9 %; Platelet Count 155 K/uL (130-400); RDW Coefficient of Variation 12.3 % (11.5-14.5); RDW Standard Deviation 41.6 fL (36.4-46.3); Red Blood Count 3.66 M/uL (4.70-6.10); White Blood Count 10.94 K/ul (4.8-10.8)
--- NOTE | 2023-04-18 11:12 | Discharge Summary ---
Date of Service April 18, 2023 Admission HPI Per Admitting Provider Roman Mujica is a 37-year-old male who presents to the emergency room on advice of urgent care with hematuria and fevers. Symptoms started on Saturday night (2 days ago) and have been persistent prompting his urgent care visit today. Associated cough with yellow/green phlegm and generalized myalgias. No sinus pain or postnasal drip. No specific urinary symptoms with no dysuria, change in color/smell, back or flank pain. He has no chronic medical conditions and takes no chronic medications. He has been taking acetaminophen for his fever with 1 dose of ibuprofen on Saturday. Admission Exam Per Admitting Provider Constitutional: WD/WN, vitals as above ENMT: Mouth: oral mucous membranes not dry Respiratory: normal respiratory effort, lungs clear to auscultation Cardiovascular: RRR, no murmur, no edema Gastrointestinal (Abdomen): normal bowel sounds, soft, nontender, no hepatosplenomegaly Musculoskeletal: no cyanosis or clubbing, extremities motor strength 5/5 Skin: no rashes, warm and dry Neurologic: moves all extremities and awake; not confused Psychiatric: A+Ox3, euthymic affect Principal Diagnosis Obstructing kidney stone with hydro, MARYCARMEN, UTI Discharge Exam WN/WD male sitting up in bed on computer, NAD Head normocephalic, atraumatic, mmm,trachea midline Resp: even/unlabored, no tachypnea, no w/c/r, on room air CV: RRR, no significant mrg, no calf edema/tenderness GI: +BS, soft/NT : no hwang, no CVA tenderness MSK/Neuro: no focal deficit, no slurred speech, answering questions appropriately, no loss of strength Psych: AOx3, cooperative with exam Discharge Data Allergies Allergy/AdvReac Type Severity Reaction Status Date / Time No Known Allergies Allergy Unverified 04/17/23 13:25 Consultations 04/17/23 13:15 Consult Urology Stat 04/17/23 13:37 ED Decision to Admit Stat Procedures Performed Operation Date: 04/17/23 13:10 Actual Procedures p Cystoscopy, Left Retrograde Pyelogram, Left Ureteral Stent Placement(Left) - Desean Melvin MD Ordered Studies Retrograde Pyelogram 04/17/23 00:00 FL KUB CLINICAL HISTORY: CYSTO, STENTleft-sided cystourethrogram COMPARISON STUDY: CT 04/17/2023 FLUOROSCOPY TIME: 5.4 seconds FLUOROSCOPY IMAGES: 3 EXPOSURE DOSE: Not reported mGy FINDINGS: Minimal left-sided hydronephrosis. Subsequent images demonstrate placement of a left ureteral stent which appears to be in satisfactory positioning proximally. The distal portion of the stent was not imaged. IMPRESSION: Fluoroscopic assistance as above. ACT 112: Negative or not required by law. Electronically signed by: Philip Joseph M.D. 04/17/2023 5:39 PM Abdomen/Pelvis CT 04/17/23 11:[address] WITHOUT CONTRAST CT DOSE: 920.38 mGy.cm HISTORY: Acute hematuria hematuria TECHNIQUE: Multiaxial CT images of the abdomen and pelvis were performed without contrast. A dose lowering technique was utilized adhering to the principles of ALARA. COMPARISON STUDY: None. FINDINGS: The lung bases are clear. Pectus excavatum. Trace pleural effusions. The unenhanced liver, spleen, gallbladder, pancreas, and adrenal glands are within normal limits. Unremarkable right kidney. Numerous left-sided renal calculi within the mid and inferior poles include a 9 mm calculus of the inferior pole 1.5 cm calculus in the renal pelvis. Mild left-sided hydronephrosis with urothelial thickening. No ureteral calculi identified. Urinary bladder wall thickening with partial distention. No abdominal aortic aneurysm or lymphadenopathy. No bowel wall thickening or obstruction. Normal appendix. No acute fracture. IMPRESSION: 1. Left nephrolithiasis with a 1.5 cm calculus within the left renal pelvis resulting in mild hydronephrosis. 2. Mild left-sided urothelial thickening may be reactive or represent an associated infectious etiology. Correlate with urinalysis. 3. Normal appendix. ACT 112: Negative or not required by law. The above report was generated using voice recognition software. It may contain grammatical, syntax or spelling errors. Electronically signed by: Philip Joseph M.D. 04/17/2023 12:27 PM Chest X-Ray 04/17/23 11:20 XR chest 1V portable HISTORY: 37 years-old Male cough acute cough COMPARISON: None TECHNIQUE: AP view of the chest FINDINGS: Cardiomediastinal and hilar silhouettes are within normal limits. No pneumothorax, pleural effusion or airspace consolidation. Bones appear grossly intact. IMPRESSION: No acute process. ACT 112: Negative or not required by law. The above report was generated using voice recognition software. It may contain grammatical, syntax or spelling errors. Electronically signed by: Philip Joseph M.D. 04/17/2023 11:49 AM Hospital Course (1) Ureterolithiasis: Presented with fever, hematuria, generalized myalgias with cough yellow/green sputum. +rhinovirus testing on admit Leukocytosis with WBC 17.3k on admission and MARYCARMEN w/ Cr to 1.92. Procal 0.53 CTAP w/ 1.5cm LEFT renal pelvis stone with mild hydronephrosis. Urology consulted s/p Cystoscopy, Left Retrograde Pyelogram with radiographic interpretation, Left Ureteral Stent Placement(Left) - Desean Melvin MD on 04/17 IVF continued, Cr to 1.72 Continued Ceftriaxone for suspected infection Urine/blood cultures negative to date however discussed with Urology as patient feeling well/wanting discharge. GIven dose IV ceftriaxone prior to dc and planning Bactrim BID at discharge. Sent 14 day course in case of infected stone. Also rx for Flomax daily, Ditropan as needed for stent discomfort Patient without PCP and had CM arrange. Repeat CBC w/ diff, BMP on Saturday next week to ensure continued improvement/returning to baseline ENcouraged continued hydration but if any fevers/worsening to return to ER. Urology arranging outpatient follow up (2) UTI (urinary tract infection): Ceftriaxone as above, Blood cultures NGTD at present, afebrile. WBC trending down on repeat planning Bactrim BID at dc given resistance locally to FLQs Repeat labs this upcoming week w/ PCP follow up (3) Rhinovirus infection: Symptomatic treatment only with guaifenesin/dextromethorphan as needed. CXR without acute process. On room air. Maintain droplet isolation precautions 96% on RA To continue OTC mucinex/hydration at dc. Return to ER if any worsening SOB/issues Plan dc home on Bactrim BID, flomax, diptropan as needed. Urology and PCP follow up (PCP arranged) and repeat labs this upcoming week provided. Total Time Total Time Spent Total Time Spent (In Minutes): 45 Discharge Plan Discharge Items Patient Disposition: Home - Self-Care Reason For Visit: INFECTED URETEROLITHIASIS Discharge Diagnosis: Infected kidney stone with obstruction Goals: You have been hospitalized for an acute medical problem. During your stay at [facility], we have made an effort to correct the problem that brought you to the hospital while keeping you as comfortable as possible. Medications were used to bring your condition under control and your discharge instructions will include directions for any medications you should take after leaving the hospital. Please make sure you see your Primary Care Provider as part of your follow up plan. Activity: Resume your previous activity Non-emergency contact: Primary Care Provider and Urologist Call non-emergency contact if: you have any medication questions, your symptoms worsen, your pain is concerning for you and you have a fever Follow-up/Referrals: Desean Melvin MD [Physician] - 05/10/23 9:40 am Elder Yan DO [Physician] - 04/23/23 11:30 am (Please arrive 15 minutes before you scheduled appointment. Thank you!) PCP,NO [Primary Care Provider] - Diet: Regular Ambulatory Orders: Basic Metabolic Panel (Routine) Timeframe: 20230422 Location: Determined by Patient Ordered By: Catarina Harding Complete Blood Count with Diff (Routine) Timeframe: 20230422 Location: Determined by Patient Ordered By: Catarina Harding Addtl Attending Provider Instructions: You have been hospitalized for elevated creatinine and blood in your urine with fevers and found to have obstructing kidney stone (as well as viral rhinovirus on respiratory testing). Chest imaging did NOT show any evidence for pneumonia. Abdominal imaging showed concerns for large obstructing kidney stone and urology was consulted and you underwent stent placement and should have follow up with them at discharge for ongoing treatment. Urine and blood cultures are pending but you have been given IV antibiotics and you are going to be continued on BACTRIM twice daily until the stone is completely treated incase this is the cause for infection due to an infected stone. I have sent a 14 day course and this may be extended depending on timing/treatment of the stone. You have also been given prescription for Flomax once daily to help with expulsion. We have also sent Ditropan for stent discomfort if needed. You have been set up with primary care at discharge and have repeat labs next week to ensure your kidney function and white count have returned to normal. Please ensure to stay well hydrated at discharge and please return to the ER if you have any repeated fevers, decreased urine output, increased pain or for any other symptoms concerning for you It has been a pleasure being a part of the medical team taking care of you while you have been in the hospital. Take care! Addtl Bag Filler Machine Operator Provider Instructions: Please call the urology office at [phone] with any questions, concerns or need to reschedule appointments for any reason. We are happy to assist you. While you have a ureteral stent in place: Some discomfort is normal. Certain movements may trigger pain or a feeling that you need to urinate. You may also feel mild soreness or pressure before or during urination. Your urine may be slightly pink or red. This is due to bleeding caused by minor irritation from the stent. This may happen on and off while you have the stent, it is not harmful and is to be expected. Medication to help minimize discomfort or bladder spasms, or to prevent infection may be prescribed. Take this as directed. Drink plenty of fluids to help flush out your urinary tract. When to call [facility] at [phone]: Your urine contains heavy blood clots You are constantly leaking urine or unable to urinate Fever of 101F or higher, chills, nausea, or vomiting Your pain is not relieved with medication The end of the stent comes out of your urethra Pending Studies at Discharge: Yes Studies:: urine/blood cultures Stand-Alone Forms: My [facility] [employer], Smoking Cessation Medications and DC Order Prescriptions: New tamsulosin 0.4 mg capsule 0.4 mg PO DAILY Qty: 30 0RF oxybutynin chloride 5 mg tablet extended release 24hr 5 mg PO DAILY PRN (Reason: stent discomfort) Qty: 14 0RF sulfamethoxazole-trimethoprim [Bactrim DS] 800-160 mg tablet 1 tab PO BID 14 Days Qty: 28 0RF Continued acetaminophen 500 mg Tablet 500 mg PO Q6H PRN (Reason: PAIN/FEVER) Discharge Orders: Discharge Order (Routine); Ordered 04/18/23 Ordered By: Catarina Harding Admission Data Admit Date/Time: 04/17/23 13:30 Attending Provider: Roberto Carlos Hudson Admit Provider: Bar Nickerson Primary Care Provider: PCP,NO Other Providers: Desean Melvin; Bar Nickerson Other Interventions: Discharge Summary Assessment (RN) Last Done: 04/18/23 11:45 Supervising Physician Co-Signing Physician Notes The patient was not seen by me. The chart was reviewed. Case discussed with MONSE Morton. Agree with assessment and plan. The patient is medically stable for discharge home today, April 18 Coding Level of Care Code 14530 INP/OBS DISCH >30 MIN Diagnoses Ureterolithiasis N20.1 UTI (urinary tract infection) N39.0 Rhinovirus infection B34.8
--- NOTE | 2023-04-18 12:31 | Urology Progress Note ---
Date of Service April 18, 2023 Assessment & Plan (1) Ureterolithiasis: (2) UTI (urinary tract infection): Plan Postop day #1 status post cystoscopy and left ureteral stent placement. Tolerating the ureteral stent with minimal bother. Afebrile and hemodynamically stable. Labs reviewed WBC improved from 17-10 today, creatinine downtrending 1.72 (1.9 yesterday). Urine and blood cultures are pending. On Ceftriaxone. Plan to D/C when medically stable per primary team with course of appropriate PO antibiotics for complicated UTI Recommend tamsulosin, prn Pyridium and prn oxybutynin for stent management Will arrange outpatient follow-up with our service to discuss definitive stone treatment. Urology will sign off. Please contact any further questions or concerns. Admission and Anticipated Discharge Date Admission Date: April 17, 2023 Subjective Patient examined at bedside this a.m. Awake, resting in bed on arrival. No acute distress. Tolerating the ureteral stent with minimal bother. Does report some hematuria. Denies fevers, chills, nausea, vomiting. On isolation for rhinovirus. Review of Systems Constitutional: as per Subjective / HPI Gastrointestinal: as per Subjective / HPI Genitourinary: + as per Subjective / HPI Physical Exam Constitutional: no acute distress Respiratory: no respiratory distress and no labored breathing Skin: No visible rashes or lesions to exposed skin areas Neurologic: awake Psychiatric: A+Ox3, euthymic affect Results & Data Vital Signs (Past 12 Hours) Vital Signs Temp Pulse Resp BP Pulse Ox O2 Del Method 04/18/23 04:45 Room Air 04/18/23 02:26 38.0 C H 103 H 16 125/77 97 Room Air 04/17/23 23:03 37.6 C 109 H 16 118/75 96 Room Air 04/17/23 20:15 37.4 C 113 H 16 115/76 98 Room Air PG Care Time/CCT Total # of Minutes Spent Total Time Spent with Patient: Total time spent is greater than 50% in coordination of care (as documented) at patient's floor/unit and/or counseling patient: Coding Level of Care Code 20331 SUB INP/OBS CARE 2/35MIN Diagnoses Ureterolithiasis N20.1 UTI (urinary tract infection) N39.0
[2023-04-18] MEDS ORDERED: cefTRIAXone SODIUM 2,000 MG in DEXTROSE 5 % MINI-B 50 ML IV SCH (13:30)
== END 2023-04-18 13:38 | disposition home or self-care (01) | DRG 661 ==
LOC: ED 10:52 → SUATTDRO 13:30 → 3W 13:30